=== PATIENT | male | born 1965 | race Caucasian/White ===

== ENCOUNTER 2024-12-20 10:12 | Outpatient (OUT) | payer SELFPAY ==
[2024-12-20 11:46] LABS: Microalbumin Urine Random 6.3 mg/dL (<=30.0)
== END 2024-12-20 10:13 | disposition home or self-care (01) ==
PROVIDERS: PCP Student in an Organized Health Care Education/Training Program; Visit Provider Student in an Organized Health Care Education/Training Program
DX: E11.9 Type 2 diabetes mellitus without complications (principal)
CPT/HCPCS: 82043